=== PATIENT | female | born 1965 | race Caucasian/White ===

== ENCOUNTER → 2016-10-28 | Outpatient (CLI) | payer BC ==
[2016-10-28 10:57] LABS: Basophils # (A) 0.1 k/uL (0-0.2); Basophils % (A) 1 %; CH 29.3; CHCM 32.4; Eosinophils # (A) 0.4 k/uL (0-0.7); Eosinophils % (A) 7 %; HCT 44.4 % (34.0-46.0); HDW 2.25; HGB 13.9 gm/dL (11.4-16.0); Luc # (Auto) 0.15; Luc % (Auto) 3; Lymphocytes # (A) 2.2 k/uL (1.0-4.8); Lymphocytes % (A) 37 %; MCH 28.5 pg (25.0-35.0); MCHC 31.3 g/dL (31.0-37.0); Mean Platelet Volume 7.6; Monocytes # (A) 0.4 k/uL (0-1.0); Monocytes % (A) 7 %; Neutrophils # (A) 2.8 k/uL (1.3-7.7); Neutrophils % (A) 46 %; RBC 4.88 m/uL (3.80-5.40); RDW 13.3 % (11.5-15.5); WBC (Perox) 5.81
[2016-10-28 11:12] LABS: ALT 44 U/L (9-52); AST 29 U/L (14-36); Alkaline Phosphatase 72 U/L (38-126); Anion Gap 9 mmol/L; Blood Urea Nitrogen 12 mg/dL (7-17); Carbon Dioxide 31 mmol/L (22-30); Chloride 105 mmol/L (98-107); Cholesterol 178 mg/dL (<200); Glucose 82 mg/dL (74-99); HDL Cholesterol 60 mg/dL (40-60); Non-African American GFR(MDRD) >60 (>60 ml/min/1.73 sqM); Potassium 4.8 mmol/L (3.5-5.1); Sodium 145 mmol/L (137-145); Total Bilirubin 0.3 mg/dL (0.2-1.3); Triglycerides 153 mg/dL (<150)
== END | disposition home or self-care (01) ==
LOC: LABWHC1 09:29
PROVIDERS: ATTEND Internal Medicine
DX: Z00.00 Encounter for general adult medical examination without abnormal findings (principal); E11.9 Type 2 diabetes mellitus without complications; E78.2 Mixed hyperlipidemia
CPT/HCPCS: 36415; 80053; 80061; 83036; 85025

== ENCOUNTER 2019-04-24 13:13 | Day surgery (SDC) | payer BC ==
[2019-04-19 10:16] VITALS: BMI 25.1
[~2019-04-24 13:13] MED LIST: DEXAMETHASONE SOD PHOSPHATE 10 MG/ML 1 ML VIAL IV ONE; HYDROmorphone 0.5 MG/0.5 ML SYRINGE IVP PRN; LACTATED RINGERS 1,000 ML IV SCH; LIDOCAINE 1% 20 ML VIAL (10MG/ML) FOR IV START INTRADERMA PRN; ONDANSETRON 4 MG/2 ML VIAL IVP ONE; SCOPOLAMINE 1.5MG/72HR PATCH TRANSDERM ONE; ceFAZolin IN SWFI 2 GM/20 ML SYRINGE IVP ONE
[2019-04-24 14:03] LABS: Glucose,Whole Blood 97 mg/dL (75-99)
[2019-04-24] MEDS ORDERED: MIDAZOLAM (PF) 2 MG/2 ML VIAL IVP ONE (14:30)
[2019-04-24] MEDS ORDERED: ROPIVACAINE 5 MG/ML 30 ML VIAL ONE (15:12)
[2019-04-24] MEDS ORDERED: fentaNYL (PF) 50 MCG/ML 2 ML AMP ONE (15:12)
[2019-04-24] MEDS ORDERED: MIDAZOLAM 2 MG/2 ML VIAL ONE (15:12)
[2019-04-24] MEDS ORDERED: LIDOCAINE 1% INJ 10MG/ML (20 ML MDV) ONE (15:12)
[2019-04-24] MEDS ORDERED: PROPOFOL 10 MG/ML 20 ML VIAL IV ONE (15:12)
[2019-04-24] MEDS ORDERED: LACTATED RINGERS 1,000 ML IV ONE (15:44)
--- NOTE | 2019-04-24 16:11 | P.OP ---
Date of Procedure: 04/24/19 Preoperative Diagnosis: 1. Symptomatic hardware, left ankle status post open reduction and internal fixation of the trimalleolar ankle fracture by an outside physician Postoperative Diagnosis: Same Procedure(s) Performed: Hardware removal left ankle, deep Anesthesia: AIDA Surgeon: Tate Weiss Wash Operator #1: Nicole Santiago Estimated Blood Loss (ml): 5 IV fluids (ml): 750 Pathology: none sent Condition: stable Disposition: PACU Indications for Procedure: The patient is very pleasant 53-year-old female who previously underwent open reduction and internal fixation of a left trimalleolar ankle fracture by an outside physician. She went on to do well following surgery. Her fractures healed and she had minimal pain in the ankle but as her swelling went down the lateral plate over the distal fibula became prominent. It became increasingly bothersome for her. She came to see me to discuss elective removal before caused a wound healing problem. I agreed that she would benefit from hardware removal. Her x-rays showed a healed fracture. The hardware and the medial malleolus across the posterior malleolus were not symptomatically and she did not want them removed. We discussed the potential risks and complications of surgery including but not limited to risk of anesthesia, superficial infection, deep infection, delayed wound healing, intraoperative fracture, refracture, instability of the ankle mortise, need for further surgery, DVT, PE, continued or worsened pain, generalized to satisfaction and surgery, and possibly loss of life or limb. The patient voiced understanding of these potential complications and provided her verbal and written consent to go forward with surgery. Description of Procedure: The patient was identified in preoperative holding and the correct left leg was marked with my initials. I reviewed the consent form with the patient and her . All of their questions were answered. The patient was then brought back to the operating room by anesthesia. She was positioned on the OR table where a general anesthetic and preoperative antibiotics were administered. All bony prominences were well-padded. A tourniquet was applied to the proximal aspect of the left thigh. A bump was placed in the left buttock internally rotating the leg to neutral. A ramp was placed under the left leg to facilitate imaging. The left leg was then prepped and draped in the standard sterile fashion. Prior to starting surgery timeout was performed identifying the correct patient, operative extremity, and procedure. The patient's leg was elevated, exsanguinated with an Esmarch bandage, the tourniquet was inflated to 250 mmHg. I began by outlining the scar over the lateral aspect of her distal fibula. Skin incision was made with a scalpel. Dissection was carried down through subcutaneous tissue. The plate was identified and exposed. The nonlocking screws were removed proximally and the locking screws were removed distally. The plate was then gently removed. The screw holes were cleaned using a curet. The wound was thoroughly irrigated and closed in layers. Final fluoroscopic images were taken verifying removal of the hardware. A manual external rotation stress x-ray was performed and showed no evidence of widening of the ankle or syndesmosis. A sterile dressing was applied. The tourniquet was let down. The patient was awoken from her anesthetic, transferred to a gurney, and brought to recovery and Procedure well.
[2019-04-24] MEDS: MEPERIDINE 50 MG/ML SYRINGE IVP ONE ×2 (16:27→16:34)
[2019-04-24 16:33] VITALS: TEMP 97.5
[2019-04-24 17:25] VITALS: RESP 16
[2019-04-24 17:52] VITALS: BP 99/65; PULSE 89
--- NOTE | 2019-04-25 07:34 | FL ---
EXAMINATION TYPE: FL guidance operating room, XR ankle limited LT DATE OF EXAM: 04/24/2019 CLINICAL HISTORY: Hardware removal of the left ankle. TECHNIQUE: Fluoroscopy. COMPARISON: None. FINDINGS: Fluoroscopic guidance was provided during pain relief procedure performed by Dr. Weiss. A total of 4 seconds of fluoroscopic time was utilized during the procedure and two spot images are acquired. Images acquired shows hardware within the left left ankle. Fluoroscopically documentation for removal. IMPRESSION: As Above.
== END 2019-04-24 17:54 | disposition home or self-care (01) ==
LOC: OR 13:13
PROVIDERS: ATTEND Orthopaedic Surgery
DX: T84.84XA Pain due to internal orthopedic prosthetic devices, implants and grafts, initial encounter (principal); Y81.3 Surgical instruments, materials and general- and plastic-surgery devices (including sutures) associated with adverse incidents; F17.210 Nicotine dependence, cigarettes, uncomplicated; E11.9 Type 2 diabetes mellitus without complications; K21.9 Gastro-esophageal reflux disease without esophagitis; Z79.899 Other long term (current) drug therapy; Z83.3 Family history of diabetes mellitus
CPT/HCPCS: 20680; 64445; 73600; J2250 ×2; J1100; J2175; J2405; J2001; J3010; J2795; J2704; J0690

== ENCOUNTER 2021-07-26 14:12 | Observation (INO) | payer BC, MEDICARE ==
[2021-07-26 14:42] LABS: Glucose,Whole Blood 114 mg/dL (75-99)
[2021-07-26] MEDS ORDERED: SODIUM CHLORIDE 0.9% 1,000 ML IV STA (14:45)
[2021-07-26] MEDS ORDERED: LORazepam 2 MG/ML INJ IV PRN (14:46)
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
[2021-07-26 15:04] LABS: Basophils # (A) 0.1 k/uL (0-0.2); Basophils % (A) 1 %; Eosinophils # (A) 0.1 k/uL (0-0.7); Eosinophils % (A) 1 %; HCT 43.6 % (34.0-46.0); HGB 14.1 gm/dL (11.4-16.0); Lymphocytes # (A) 1.2 k/uL (1.0-4.8); Lymphocytes % (A) 13 %; MCH 29.9 pg (25.0-35.0); MCHC 32.3 g/dL (31.0-37.0); MCV 92.7 fL (80.0-100.0); Mean Platelet Volume 7.4; Monocytes # (A) 0.3 k/uL (0-1.0); Monocytes % (A) 3 %; Neutrophils # (A) 7.3 k/uL (1.3-7.7); Neutrophils % (A) 81 %; Platelet Count 400 k/uL (150-450); RDW 13.1 % (11.5-15.5)
[2021-07-26 15:12] LABS: Albumin 4.5 g/dL (3.5-5.0); Calcium 9.7 mg/dL (8.4-10.2); Potassium 4.8 mmol/L (3.5-5.1); Total Bilirubin 0.4 mg/dL (0.2-1.3); Total Protein 7.2 g/dL (6.3-8.2)
[2021-07-26 15:21] LABS: INR 0.9 (<1.2); Prothrombin Time 10.1 sec (9.0-12.0)
[2021-07-26 15:23] LABS: Partial Thromboplastin Time 20.9 sec (22.0-30.0)
--- NOTE | 2021-07-26 15:45 | CT ---
EXAMINATION TYPE: CT brain wo con DATE OF EXAM: 07/26/2021 COMPARISON: None INDICATION: New onset seizure. DLP: 1164.8 mGycm, Automated exposure control for dose reduction was used. CONTRAST: None CT of the brain is performed utilizing 3 mm thick sections through the posterior fossa and 3 mm thick sections through the remaining calvarium. Study is performed within 24 hours of arrival to the hosp ital. No abnormal hyperdensity is present to suggest an acute intracranial hemorrhage. No mass lesion is evident. No acute infarcts are evident. Temporal lobe hypodensity is present can be posttraumatic. There is in ferior frontal lobe hypodensity density may be posttraumatic. Ventricles and sulci are prominent for the patient age. Paranasal sinuses and mastoid air cells within the [id number]-gl-utex are clear. IMPRESSIONS: 1. Atrophy with inferior frontal and anterior temporal lobe hypodensity more suggestive for old pos ttraumatic change
--- NOTE | 2021-07-26 16:21 | CT ---
EXAMINATION TYPE: CT angio head neck DATE OF EXAM: 07/26/2021 HISTORY: New onset seizure. COMPARISON: None CT DLP: 585.5 mGycm. Automated Exposure Control for Dose Reduction was Utilized. TECHNIQUE: CTA scan of the neck is performed with IV Contrast, patient injected with 65 mL of Isovue 370, axial images are obtained, coronal and sagittal reformatted images are reviewed. Three-D recons tructed images are created on an independent workstation and reviewed. Source images are reviewed. FINDINGS: Carotid/Vascular Structures: There is narrowing of the origins of the right internal/external carotid artery on the reconstructed images. However, the curved images do not have significant stenosis evid ent. Dedicated cross-sectional imaging appears normal through the carotid bifurcations. Left internal carotid artery appears normal. Right carotid bifurcation reconstructed findings are likely artifact. Cervical of [place]: Vertebral basilar system appears normal. Posterior cerebral vasculature is unrema rkable. Internal carotid arteries bifurcate normally into A1 and M1 segments. A2 segments are normal. The anterior communicating artery is patent. Left Posterior communicating artery is absent. Right po sterior communicating artery is patent. IMPRESSION: 1. No flow-limiting stenosis bilateral carotid bifurcations. 2. Normal [place] of [place] NASCET criteria was used in interpretation of this exam?
[2021-07-26] MEDS ORDERED: LORazepam 2 MG/ML INJ IV STA (17:16)
[2021-07-26] MEDS ORDERED: ONDANSETRON 4 MG/2 ML VIAL IVP PRN (17:25)
[2021-07-26] MEDS ORDERED: NALOXONE 0.4 MG/ML 1 ML VIAL IV PRN (17:25)
[2021-07-26] MEDS ORDERED: ACETAMINOPHEN TAB 325 MG TAB PO PRN (17:25)
--- NOTE | 2021-07-26 17:40 | XR ---
EXAMINATION TYPE: XR chest 1V portable DATE OF EXAM: 07/26/2021 COMPARISON: NONE HISTORY: Seizure TECHNIQUE: Single frontal view of the chest is obtained. FINDINGS: A coarsened interstitium with subsegmental consolidation involving the right lower lobe. A solomon of nodularity not excluded. Underlying chronic interstitial lung disease and COPD noted there is evidence of previous right clavicular surgery and chronic deformity left clavicle. No pneumothorax. N o pleural effusion. Underlying COPD suspected. IMPRESSION: 1. COPD correlate for chronic interstitial lung disease. Vague infiltrate right lower lobe. Nodularit y not excluded follow-up to resolution recommended.
[2021-07-26] MEDS: SODIUM CHLORIDE 0.9% 1,000 ML IV SCH (18:15)
[2021-07-26 20:02] LABS: Glucose,Whole Blood 89 mg/dL (75-99)
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
[2021-07-27 06:17] LABS: Glucose,Whole Blood 88 mg/dL (75-99)
[2021-07-27] MEDS: INSULIN ASPART (NovoLOG) 100 UNIT/ML VIAL SQ SCH ×2 (06:40→13:20)
[2021-07-27] MEDS: SODIUM CHLORIDE 0.9% 1,000 ML IV SCH (08:30)
[2021-07-27] MEDS ORDERED: VENLAFAXINE HCL ER 150 MG CAP PO SCH (09:00)
[2021-07-27] MEDS ORDERED: FAMOTIDINE 20 MG TAB PO SCH (09:00)
[2021-07-27 09:16] LABS: Basophils % (A) 0 %; Eosinophils # (A) 0.1 k/uL (0-0.7); Eosinophils % (A) 2 %; HCT 41.3 % (34.0-46.0); HGB 13.8 gm/dL (11.4-16.0); Lymphocytes # (A) 1.6 k/uL (1.0-4.8); Lymphocytes % (A) 27 %; MCH 29.8 pg (25.0-35.0); MCHC 33.3 g/dL (31.0-37.0); MCV 89.5 fL (80.0-100.0); Monocytes # (A) 0.3 k/uL (0-1.0); Monocytes % (A) 5 %; Neutrophils # (A) 3.9 k/uL (1.3-7.7); Neutrophils % (A) 64 %; Platelet Count 365 k/uL (150-450); RBC 4.61 m/uL (3.80-5.40); RDW 13.6 % (11.5-15.5)
[2021-07-27 09:20] LABS: ALT 27 U/L (4-34); AST 39 U/L (14-36); African American GFR (CKD) >90 (>60 ml/min/1.73 sqM); Albumin 3.7 g/dL (3.5-5.0); Alkaline Phosphatase 75 U/L (38-126); Anion Gap 6 mmol/L; Blood Urea Nitrogen 12 mg/dL (7-17); Calcium 9.2 mg/dL (8.4-10.2); Carbon Dioxide 22 mmol/L (22-30); Chloride 111 mmol/L (98-107); Glucose 94 mg/dL (74-99); Non-African American GFR(CKD) >90 (>60 ml/min/1.73 sqM); Potassium 4.3 mmol/L (3.5-5.1); Sodium 139 mmol/L (137-145); Total Bilirubin 0.5 mg/dL (0.2-1.3); Total Protein 6.3 g/dL (6.3-8.2)
[2021-07-27] MEDS ORDERED: LACOSAMIDE 50 MG TABLET PO SCH (10:00)
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
--- NOTE | 2021-07-27 10:16 | P.PN ---
Subjective Progress Note Date: 07/27/21 Principal diagnosis: Witnessed Seizure activity Hospital course: Patient is a 55-year-old female with a past medical history of TBI resulting in memory impairment and prediabetes. She presented to the emergency department with a chief complaint of witnessed seizure activity on 07/26/21 after patient's daughter witnessed patient stair off with a blank stare followed by tonic-clonic seizure-like activity reportedly lasting approximately [address] head without contrast as well as CTA of brain findings suggestive of chronic changes from prior traumatic brain injury and negative for acute intracranial process. Lab work unremarkable. Patient admitted under our services with consultation to neurology. Physical exam: Patient seen and examined at bedside this morning she was preparing to go down for EEG and MRI. Patient's at bedside. Patient does have episodes of confusion and does not recall events leading up to hospitalization. Patient's reports patient is at her baseline mentation with memory since having TBI 3 years ago. Patient currently denies having any pain or complaints including headache, lightheadedness, dizziness, changes in her vision or hearing, changes in her difficulties with her speech, dysphasia, chest pain, palpitations, shortness of breath, or experiencing any numbness/tingling/weakness in her extremities. Vital signs reviewed and stable. General: Nontoxic, no distress and appears stated age. Derm: Skin warm and dry, normal coloration for ethnicity. Head: Atraumatic, normocephalic and symmetric. Eyes: EOMs intact, no lid lag, and anicteric sclera Mouth: no lip lesions, mucus membranes moist Cardiovascular: regular rate and rhythm with normal S1S2, no murmur, positive posterior tibial pulses bilaterally, and cap refill < 2 seconds. Lungs: Respirations even, regular, and unlabored on room air. Lungs CTA bilaterally, no rhonchi, no rales, no wheezing, and no accessory muscle usage. Abdominal: soft, nontender to palpation, no guarding, no appreciable organomegaly Ext: ROM intact. No gross muscle atrophy, no edema, no contractures Neuro: Speech clear, face symmetrical and CN II-XII grossly intact with no noted focal neuro deficits Psych: Alert and oriented to person, place, and time. 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 at bedside reports normal memory for pt. Appropriate and pleasant affect. Assessment and Plan of Care: Seizure-like activity in patient with history of TBI -CT head without contrast as well as CTA of brain findings suggestive of chronic changes from prior traumatic brain injury and negative for acute intracranial process. -Seizure precautions, aspiration precautions, and fall precautions in place. -Neurology consulted, started patient on Vimpat and placed order for MRI. -Continue neuro checks -EEG to be completed -Patient informed of [place] state law stating no driving until seizure free for 6 months. Patient also instructed to avoid climbing ladders, operating dangerous or heavy machinery or unsupervised swimming until seizure free for 6 months. Prediabetes Glycemic protocol with NovoLog sliding scale Depression Continue daily medication management with Effexor CODE STATUS: Full code DVT prophylaxis: SCDs Discussed with: Patient, patient's , and RN Anticipated discharge date: Possibly later today pending further results Anticipated discharge place: Home A total of 45 minutes was spent on the care of this complex patient more than 50% of the time was spent in counseling and care coordination. Objective - Vital Signs Vital signs: Vital Signs Temp 98.4 F 07/27/21 08:00 Pulse 83 07/27/21 08:00 Resp 18 07/27/21 08:00 BP 126/68 07/27/21 08:00 Pulse Ox 94 L 07/27/21 08:00 Intake & Output 07/26/21 07/27/21 07/27/21 18:59 06:59 18:59 Weight 84.822 kg 85 kg Other: Voiding Method Toilet # Voids 1 - Labs CBC & Chem 7: 07/27/21 08:34 07/27/21 08:34 Labs: Abnormal Lab Results - Last 24 Hours (Table) 07/26/21 07/26/21 07/26/21 Range/Units 14:39 14:51 14:51 APTT 20.9 L (22.0-30.0) sec Chloride (98-107) mmol/L Carbon Dioxide 17 L (22-30) mmol/L Glucose 131 H (74-99) mg/dL POC Glucose (mg/dL) 114 H (75-99) mg/dL Plasma Lactic Acid Suhas (0.7-2.0) mmol/L AST (14-36) U/L 07/26/21 07/27/21 Range/Units 14:51 08:34 APTT (22.0-30.0) sec Chloride 111 H (98-107) mmol/L Carbon Dioxide (22-30) mmol/L Glucose (74-99) mg/dL POC Glucose (mg/dL) (75-99) mg/dL Plasma Lactic Acid Suhas 4.9 H* (0.7-2.0) mmol/L AST 39 H (14-36) U/L
--- NOTE | 2021-07-27 13:16 | MR ---
EXAMINATION TYPE: MR brain wo/w con DATE OF EXAM: 07/27/2021 COMPARISON: CT brain 07/26/2021 HISTORY: New onset seizure. Hx of fall on head TECHNIQUE: Multiplanar, multisequence images of the brain and brainstem is performed without and with IV contras t, utilizing 8 mL intravenous Gadavist . FINDINGS: There is motion on the exam. No evident restricted diffusion. There is encephalomalacia inv olving the temporal and parietal lobes, frontal lobes similar to prior CT consistent with patient's h istory of closed head injury, there are areas of hyperintensity consistent with scoliosis in these ar eas, there is no hemorrhage or hydrocephalus. Scattered hyperintensities are present on inversion rec overy T2-weighted sequences within the subcortical and periventricular white matter. The ventricular system and cisternal spaces are normal in size and appearance. The brain volume is age appropriate. Midline structures demonstrate normal morphology. The craniocervical junction appears within normal limits. Post contrast images demonstrate no abnormal enhancement. The dural venous sinuses appear pa tent. The visualized sinuses are clear and the globes are intact. IMPRESSION: Findings consistent with patient's remote history of closed head injury.
--- NOTE | 2021-07-27 13:56 | EEG ---
ELECTROENCEPHALOGRAM REPORT DATE OF SERVICE: 07/27/2021. CLINICAL HISTORY: This is a 55-year-old woman with medical history of traumatic brain injury who presented to the emergency department because of new-onset seizure-like activity. The video EEG is obtained to evaluate for seizure epileptiform activity. RELEVANT MEDICATION: Vimpat as well 2 mg Ativan. EEG TYPE: A routine 21-channel EEG is performed with video using the 10/20 electrode placement system. DESCRIPTION: Wakefulness, drowsiness and sleep state are obtained. During awake state there is a posterior-dominant rhythm of low to moderate voltage that is well modulated and well sustained of 9 hertz activity. During drowsiness there is slowing attenuation of background activity. During stage 2 sleep, there are sleep spindles and K complexes. There is an occasional to moderate amount of delta slowing over the bilateral frontal, left more than the right, of 1.5 to 2 hertz that is low to moderate voltage that is nonrhythmic in activity. Interictal and ictal is none. ACTIVATION PROCEDURE: Photic stimulation did evoke a posterior driving response. There is no abnormality during the photic stimulation. Hyperventilation is not performed. CLINICAL INTERPRETATION: This is an abnormal routine EEG. The background is normal and there are no epileptiform discharges or seizure on the study. There is focal slowing over bilateral frontal, predominantly left more than the right, which likely corresponds with the patient's structural lesion from her history of traumatic brain injury. Clinical correlation is recommended. MMMICHAEL / JASON: [id number] / ANGELO
[2021-07-27 15:11] VITALS: BP 127/66; PULSE 91; RESP 17; TEMP 98.3
--- NOTE | 2021-07-27 16:00 | P.DS ---
<Tone Salguero - Last Filed: 07/27/21 15:53> Providers Expected date of discharge: 07/27/21 Hospital Course: Discharge Diagnosis: New Onset Seizure in patient with history of TBI Memory impairment secondary to previous TBI Prediabetes Depression Hospital Course: Patient is a 55-year-old female with a past medical history of TBI resulting in memory impairment and prediabetes. She presented to the emergency department with a chief complaint of witnessed seizure activity on 07/26/21 after patient's daughter witnessed patient stair off with a blank stare followed by tonic-clonic seizure-like activity reportedly lasting approximately [address] head without contrast as well as CTA of brain findings suggestive of chronic changes from prior traumatic brain injury and negative for acute intracranial process. Lab work unremarkable. Patient admitted under our services with consultation to neurology. She was placed in seizure precautions and started on Vimpat. MRI of brain negative for acute process revealing findings consistent with patient's remote history of previous closed head injury. EEG: Abnormal findings negative for elective form discharges or seizure activity on the study however there is focal slowing over bilateral frontal, predominantly left more than right, which corresponds with patient's structural lesion from her previous TBI. Neurology recommending patient follow-up with Dr. Rio Bui in 2 weeks upon discharge. Patient is medically stable for discharge at this time as she has had no further episodes of seizure activity since arrival to our facility. Vital signs stable. Patient showing no signs of new neurological deficits at this time. Patient stable for discharge home with her . Patient and her also instructed on importance of taking seizure medication, Vimpat, exactly as prescribed without missing any doses and to avoid climbing ladders, operating dangerous or heavy machinery or unsupervised swimming until seizure free for 6 months. A total of 45 minutes of time were spent preparing this complex discharge summary. Patient Condition at Discharge: Fair Plan - Discharge Summary Discharge Rx Participant: No New Discharge Prescriptions: New Lacosamide [Vimpat] 50 mg PO BID 30 Days #60 tablet Continue Famotidine [Pepcid AC] 10 mg PO DAILY Levocetirizine Dihydrochloride [Xyzal] 5 mg PO DAILY Naproxen Sodium [Aleve] 220 - 440 mg PO DAILY PRN PRN Reason: Pain Venlafaxine HCl ER [Effexor XR] 150 mg PO DAILY Discharge Medication List Famotidine [Pepcid AC] 10 mg PO DAILY 07/05/19 [History] Levocetirizine Dihydrochloride [Xyzal] 5 mg PO DAILY 07/26/21 [History] Naproxen Sodium [Aleve] 220 - 440 mg PO DAILY PRN 07/26/21 [History] Venlafaxine HCl ER [Effexor XR] 150 mg PO DAILY 07/26/21 [History] Lacosamide [Vimpat] 50 mg PO BID 30 Days #60 tablet 07/27/21 [Rx] Follow up Appointment(s)/Referral(s): Rio Bui, [REFERRING] - 1 Week (MondayNovember 01 10:30) None,Stated [REFERRING] - 1-2 days (, August 05 9:15) Patient Instructions/Handouts: Seizure/Epilepsy Discharge Instructions & Follow-Up Activity/Diet/Wound Care/Special Instructions: Patient informed of [place] state law stating no driving until seizure free for 6 months. Patient also instructed to avoid climbing ladders, operating dangerous or heavy machinery or unsupervised swimming until seizure free for 6 months. Thank you for allowing us to participate in your care, it was a pleasure having you for our patient!!!!! Discharge Disposition: HOME SELF-CARE <Lilliam Gustafson - Last Filed: 07/27/21 18:44> Providers Date of admission: 07/26/21 17:25 Attending physician: Lilliam Gustafson MD Consults: 07/26/21 17:26 Consult Physician Routine Consulting Provider: Sunil Eduardo Consult Reason/Comments: new onset seizure Do you want consulting provider notified?: Yes Primary care physician: Los Hernandez MD Hospital Course: Patient seen and evaluated by me independently. Patient was also seen by GHAZAL, the original author of this note. I am in agreement with the subjective, physical exam, and assessment and plan as documented with the addition/changes of my exam and assessment below. Gen: awake, alert HEENT: normocephalic, atraumatic, good hearing acuity, moist mucous membranes Resp: good air exchange, breathing comfortably with no accessory muscle use CVS: good distal perfusion x 4, GI: soft, NTTP, ND : no SPT, no CVAT, lima catheter not present MSK: no pitting edema, no clubbing Neuro: non-focal, moving all extremities Psych: cooperative, euthymic mood Plan: Continue Vimpat EEG and MRI findings reviewed Neurology follow-up outpatient Patient was counseled on no driving until seizure free for 6 months
== END 2021-07-27 16:08 | disposition home or self-care (01) ==
LOC: EC 14:12 → INTOOBSV 17:25 → 3SCARD 17:25 → UNDODISIN 07-27 16:08
PROVIDERS: ADMIT Internal Medicine; ATTEND Internal Medicine
DX: R56.9 Unspecified convulsions (principal); R41.3 Other amnesia; R73.03 Prediabetes; Z20.822 Contact with and (suspected) exposure to COVID-19; E87.2 Acidosis; F17.210 Nicotine dependence, cigarettes, uncomplicated; F32.9 Major depressive disorder, single episode, unspecified; K21.9 Gastro-esophageal reflux disease without esophagitis; Z79.899 Other long term (current) drug therapy; Z91.018 Allergy to other foods; Z90.710 Acquired absence of both cervix and uterus; Z87.820 Personal history of traumatic brain injury; Z87.81 Personal history of (healed) traumatic fracture; Z80.9 Family history of malignant neoplasm, unspecified
CPT/HCPCS: 99285; 96361; 96374; 36415; 95816; 93005; 80053 ×2; 83605; 83735; 85025 ×2; 85610; 85730; 83036; 87635; 71045; 70496; 70450; 70498; 70553; G0378 ×2; J2060; Q9967; A9585

== ENCOUNTER → 2021-12-28 | Outpatient (CLI) | payer BC | LOC: NEUROMAIN 07:50 | PROVIDERS: ATTEND Psychiatry & Neurology Neurology | DX: G40.911 Epilepsy, unspecified, intractable, with status epilepticus (principal); S09.90XA Unspecified injury of head, initial encounter; F17.200 Nicotine dependence, unspecified, uncomplicated; Z91.02 Food additives allergy status | CPT/HCPCS: 95713 ==

== ENCOUNTER → 2021-12-30 | Outpatient (CLI) | payer BC, MEDICARE ==
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
== END | disposition home or self-care (01) ==
LOC: RADMRIMAIN 08:17
PROVIDERS: ATTEND Psychiatry & Neurology Neurology
DX: S09.90XA Unspecified injury of head, initial encounter (principal); R56.1 Post traumatic seizures; R42 Dizziness and giddiness; V99.XXXA Unspecified transport accident, initial encounter
CPT/HCPCS: 70553; A9585

== ENCOUNTER → 2022-04-01 | Outpatient (CLI) | payer MEDICARE ==
--- NOTE | 2022-04-04 11:39 | MM ---
Reason for Exam: Screening (asymptomatic). Last mammogram was performed 7 year(s) and 8 month(s) ago. Patient History: Menarche at age 10. First Full-Term at age 19. Left ovary removed at age 38. Right ovary removed at age 38. Hysterectomy at age 38. Postmenopausal. Currently using Estrogen, beginning at age 38 for 4 years, 6 months. Mother had breast cancer, age 55. Risk Values: Megha 5 year model risk: 2.6%. NCI Lifetime model risk: 14.2%. Prior Study Comparison: 06/17/2010 Bilateral Screening Mammogram, [facility]. 11/25/2011 Bilateral Screening Mammogram, [facility]. 07/28/2014 Bilateral Screening Mammogram, [facility]. Tissue Density: The breast tissue is heterogeneously dense. This may lower the sensitivity of mammography. Findings: Analyzed By CAD. There is no suspicious group of microcalcifications or new suspicious mass in either breast. Overall Assessment: Negative, BI-RAD 1 Management: Screening Mammogram of both breasts in 1 year. A clinical breast exam by your physician is recommended on an annual basis and results should be correlated with mammographic findings. Electronically signed and approved by: Jeremie Quijano M.D. Radiologis
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
== END | disposition home or self-care (01) ==
LOC: RADBDWWP 11:05
PROVIDERS: ATTEND Internal Medicine
DX: Z12.31 Encounter for screening mammogram for malignant neoplasm of breast (principal); M85.89 Other specified disorders of bone density and structure, multiple sites; Z78.0 Asymptomatic menopausal state; Z80.3 Family history of malignant neoplasm of breast
CPT/HCPCS: 77063; 77067; 77080

== ENCOUNTER → 2023-05-12 | Outpatient (CLI) | payer MEDICARE ==
--- NOTE | 2023-05-15 15:00 | MM ---
Reason for Exam: Screening (asymptomatic). Last mammogram was performed 1 year(s) and 1 month(s) ago. Patient History: Menarche at age 10. First Full-Term at age 19. Left ovary removed at age 38. Right ovary removed at age 38. Hysterectomy at age 38. Postmenopausal. Estrogen, starting at age 38 for 4 years, 6 months. Mother had breast cancer, age 55. Risk Values: Megha 5 year model risk: 2.7%. NCI Lifetime model risk: 13.9%. Prior Study Comparison: 11/25/2011 Bilateral Screening Mammogram, [facility]. 07/28/2014 Bilateral Screening Mammogram, [facility]. 04/01/2022 Bilateral MG 3D screening mammo w/cad, [facility]. Tissue Density: The breast tissue is heterogeneously dense. This may lower the sensitivity of mammography. Findings: Analyzed By CAD. Pattern appears symmetrical and stable. No significant interval change is evident. No suspicious groups of microcalcifications, spiculated or lobular masses, architectural distortion or other secondary signs of malignancy are mammographically apparent. Overall Assessment: Benign, BI-RAD 2 Management: Screening Mammogram of both breasts in 1 year. A negative mammogram report should not preclude additional follow up of suspicious palpable abnormalities. Patient should continue monthly self breast exam. A clinical breast exam by your physician is recommended on an annual basis and results should be correlated with mammographic findings. Electronically signed and approved by: Jarod Rider D.O. Radiologis
== END | disposition home or self-care (01) ==
LOC: RADMAMWWP 10:51
PROVIDERS: ATTEND Internal Medicine
DX: Z12.31 Encounter for screening mammogram for malignant neoplasm of breast (principal); Z80.3 Family history of malignant neoplasm of breast; Z78.0 Asymptomatic menopausal state
CPT/HCPCS: 77063; 77067

== ENCOUNTER → 2024-10-29 | Outpatient (CLI) | payer MEDICARE ==
--- NOTE | 2024-10-29 12:52 | MM ---
Reason for Exam: Screening (asymptomatic). Last mammogram was performed 1 year(s) and 6 month(s) ago. Patient History: Menarche at age 10. First Full-Term at age 19. Left ovary removed at age 38. Right ovary removed at age 38. Hysterectomy at age 38. Postmenopausal. Estrogen, starting at age 38 for 4 years, 6 months. Mother had breast cancer, age 55. Risk Values: Megha 5 year model risk: 2.7%. NCI Lifetime model risk: 13.6%. Prior Study Comparison: 07/28/2014 Bilateral Screening Mammogram, [facility]. 04/01/2022 Bilateral MG 3D screening mammo w/cad, [facility]. 05/12/2023 Bilateral MG 3D screening mammo w/cad, [facility]. Tissue Density: There are scattered areas of fibroglandular density. Findings: Analyzed By CAD. There is no suspicious group of microcalcifications or new suspicious mass in either breast. Overall Assessment: Negative, BI-RAD 1 Management: Screening Mammogram of both breasts in 1 year. . Patient should continue monthly self-breast exams. A clinical breast exam by your physician is recommended on an annual basis. This exam should not preclude additional follow-up of suspicious palpable abnormalities. Note on Megha scores and lifetime risk: 1. A Megha score greater than 3% is considered moderate risk. If this is the case, consider specialist referral to assess eligibility for a risk reducing agent. 2. If overall lifetime risk for the development of breast cancer is 20% or higher, the patient may qualify for future screening with alternating mammogram and breast MRI. [facility], , 10/29/2024 12:49 PM. Electronically signed and approved by: Adithya Fuller M.D.
--- NOTE | 2024-10-29 13:38 | BD ---
EXAMINATION TYPE: Axial Bone Density DATE OF EXAM: 10/29/2024 CLINICAL HISTORY: 58 years old Female. ICD-10 CODE: M85.80 OSTEOPENIA , Additional History: Height: 68 Weight: 179.3 FRAX RISK QUESTIONS: Alcohol (3 or more units per day): no Family History (Parent hip fracture): father Glucocorticoids (More than 3mos): no (Ex: prednisone, prednisolone, methylprednisolone, dexamethasone, and hydrocortisone). History of Fracture in Adulthood: clavicle, rt wrist, ankle, ribs Secondary Osteoporosis: 1. Type 1 Diabetes: no 2. Hyperthyroidism: no 3. Menopause before 45: no 4. Malnutrition: no 5. Chronic liver disease: no Rheumatoid Arthritis: no Current Tobacco Use: no RISK FACTORS HISTORY OF: Hip Fracture (Right/Left): no Spine Fracture: no History of Wrist Fracture: RT Wrist When: 2018 Surgery to Spine/Hip(right/left)/Wrist (right/left): no MEDICATIONS: Thyroid Medications: no Osteoporosis Medications: no How Long: EXAM MEASUREMENTS: Bone mineral densitometry was performed using the [employer] System. Bone mineral density as measured about the Lumbar spine is: ----- L1-L4(G/cm2): 1.057 T Score Values are as follows: ----- L1: -1.9 ----- L2: -1.8 ----- L3: 0.1 ----- L4: -0.9 ----- L1-L4: 1.0 Z Score Values are as follows: ----- L1: -1.2 ----- L2: -1.1 ----- L3: 0.8 ----- L4: -0.2 ----- L1-L4: -0.3 Bone mineral density has: increased 3.3 % since study of: 04/01/2022 Bone mineral density about the R hip (g/cm2): 0.935 Bone mineral density about the L hip (g/cm2): 0.917 T Score values are as follows: -----R Neck: -1.1 -----L Neck: -1.1 -----R Total: -0.6 -----L Total: -0.7 Z Score values are as follows: -----R Neck: -0.2 -----L Neck: -0.2 -----R Total: 0.0 -----L Total: -0.1 Bone mineral density has: decreased -3.1 % since study of: 04/01/2022 FRAX%s: The graph provided illustrates a 24.3% chance for a major osteoporotic fx and a 0.9*% chance for the hips probability for fx in 10 years time. IMPRESSION: Osteopenia (T Score between -2.5 and -1) is redemonstrated. There is slightly increased risk of fracture and the patient may be considered for treatment. Re-Screen 2-5 years. NOTE: T-SCORE=SD OF THE YOUNG ADULT MEAN. [facility], , 10/29/2024 1:36 PM
== END | disposition home or self-care (01) ==
LOC: RADMAMWWP 12:15
PROVIDERS: ATTEND Internal Medicine
DX: Z12.31 Encounter for screening mammogram for malignant neoplasm of breast (principal); M85.80 Other specified disorders of bone density and structure, unspecified site; Z90.722 Acquired absence of ovaries, bilateral; Z78.0 Asymptomatic menopausal state; Z80.3 Family history of malignant neoplasm of breast; R92.323 Mammographic fibroglandular density, bilateral breasts
CPT/HCPCS: 77063; 77067; 77080